=== PATIENT | male | born 1990 | race Caucasian/White ===

== ENCOUNTER 2021-08-10 09:23 | Outpatient (CLI) | payer OTHER ==
--- NOTE | 2021-08-10 16:47 | Vascular Lab Report ---
RENAL ARTERIAL DOPPLER ULTRASOUND HISTORY: UNCONTROLLED HYPERTENSION COMPARISON: None. TECHNIQUE: Routine renal arterial doppler ultrasound performed using grayscale, color and pulsed dopp ler. The study is technically difficult due to body habitus and bowel gas. FINDINGS: Abdominal Aorta: No significant abnormality. Suprarenal velocity is 91 cm/s. Right kidney: No significant abnormality. No hydronephrosis. Kidney measures 10.8 cm. Resistive index: Less than 0.7 Right renal artery: Peak systolic velocity of 128 cm/s with zcrhg-nr-lyeien ratio of 1.41 Right renal vein: Not imaged. Left kidney: No significant abnormality. No hydronephrosis. Kidney measures 11.8 cm. Resistive index: Less than 0.7 Left renal artery: Peak systolic velocity of 111 cm/s with eskxg-yb-cgoogn ratio of 1.23 Left renal vein: Not imaged. Additional findings: None. IMPRESSION: No evidence of renal artery stenosis. Signer Name: Patrick Hearn MD Signed: 08/10/2021 4:42 PM Workstation Name: [id number]
== END 2021-08-10 09:24 | disposition home or self-care (01) ==
LOC: VAS 09:23
PROVIDERS: ATTEND Internal Medicine
DX: I10 Essential (primary) hypertension (principal)
CPT/HCPCS: 93975